=== PATIENT | female | born 1980 | race Two or more races ===

== ENCOUNTER 2016-08-14 13:28 | Emergency (ER) | payer SELFPAY ==
[~2016-08-14] VITALS: Ht 144.8 cm; Wt 63.5 kg
[2016-08-14 13:50] VITALS: BP 103/97
[2016-08-14] MEDS ORDERED: HYDROmorphone HCL 2 MG/ML VL IM ONE (14:45)
[2016-08-14] MEDS ORDERED: METHOCARBAMOL 500 MG TAB PO ONE (14:45)
[2016-08-14] MEDS ORDERED: ONDANSETRON HCL 4 MG/2 ML VIAL IM ONE (14:45)
== END 2016-08-14 16:14 | disposition home or self-care (01) ==
LOC: ER 13:28 → EDSEX 13:28 → ER 16:14
DX: S39.012A Strain of muscle, fascia and tendon of lower back, initial encounter (principal); M54.5 Low back pain; G89.29 Other chronic pain; X58.XXXA Exposure to other specified factors, initial encounter; Y93.89 Activity, other specified; Y99.8 Other external cause status; Y92.89 Other specified places as the place of occurrence of the external cause
CPT/HCPCS: 72110; 96372; 99284; J1170; J2405